=== PATIENT | female | born 1985 | race Caucasian/White ===

== ENCOUNTER 2024-01-24 10:37 | Inpatient (IN) | payer OTHER, SELFPAY ==
[2024-01-24] VITALS (11 sets, daily range): BP systolic 100–128; BP diastolic 55–93; BMI 25.2; BMI 26.9
--- NOTE | 2024-01-24 07:42 | ED.GENMED ---
History of Present Illness
General
Chief Complaint: Pneumonia Symptoms
Source: patient
Exam Limitations: none
Time Seen by Provider: 01/24/24 07:23
Nursing documentation reviewed up to this point in time: agreed with
Travel History
Have you had any contact with someone who has COVID-19?: No
Do you have any symptoms of coronavirus? Fever > 100 degrees, chills, cough, shortness of breath, sore throat, loss of taste or smell, muscle aches, or headache?: No
History of Present Illness
History of Present Illness:
38 y/o F with no pmh
has had fever and slight cough starting 01/18
has had temps up to 102, treated with ibuprofen (400 mg) or tylenol (650) every 3-5 hours or so
went to 2 days ago and DX with YESSI mild opacity/airspace disease c/w pna
put on augmentin, had 5 doses so far and still having temps
last tylenol at 445 am
having upper back pain, myalgias, headache, and fatigue, and rigors
Review of Systems
Review of Systems
Allergies reviewed?: Yes
All Other Systems: Not applicable
Phy Exam
Physical Exam
Physical Exam:
GENERAL: Alert , in no apparent distress
EYE: pupils equal and reactive
NECK: Supple
ENT: o/p clr, mmm.
CARDIAC: tachy, no murmur appreciated
LUNGS: b/l upper lobe rhonchi/rales worse on L than R
no tachypnea
speaking full sentences
ABDOMEN: Soft, without focal tenderness, no r/g, no cvat, normal bowel sounds
NEUROLOGICAL: Alert and oriented, no focal neuro deficits
SKIN: Warm and dry, skin intact.
MUSCULOSKELETAL: No edema, well perfused. neg michael's sign
PSYCH: Normal and appropriate interaction.
Course
Orders/Labs/Results
Orders:
Orders
05/24/24 07:32
CR Chest - 2 Views Urgent
Comment:
Reason For Exam: shortness of breath
01/24/24 07:34
CMP [Comprehensive Metabolic Panel] Urgent
Complete Blood Count/With Diff Urgent
01/24/24 07:42
0.9% Sodium Chloride 1000 ml [Nss] 1,000 ml IV BOLUS
Ibuprofen [Motrin] 600 mg PO NOW STA
01/24/24 08:25
Test Result ONCE
01/24/24 08:29
COVID-19 Antigen Urgent
Source: Nasal Swab
HCG, Urine Qualitative Screen Urgent
Date Specimen was Collected: 01/24/24
Time Specimen was Collected: 08:26
Urinalysis Reflex To Culture Urgent
Date Specimen was Collected: 01/24/24
Time Specimen was Collected: 08:26
Urine Microscopic Reflex Cult Urgent
Blood Culture Q30M
MARK Source: Blood/Venous
Specimen Description:
Blood Culture Q30M
MARK Source: Blood/Venous
Specimen Description:
Influenza A+B Rapid Molecular Urgent
MARK Source: Nasal Swab
Specimen Description:
01/24/24 08:51
Azithromycin 500 mg/250 ml [Zithromax Infusion] 500 mg in 250 ml IV NOW
CefTRIAXone [Rocephin] 1,000 mg IV NOW STA
Abnormal Lab Results
01/24/24 01/24/24
07:34 08:29
WBC 3.9 L 10^3/uL
(4.8-10.8)
Hct 34.9 L %
(37.0-47.0)
MPV 11.3 H fL
(7.4-10.4)
Absolute Lymphs (auto) 0.7 L 10^3/uL
(1.2-3.4)
Lymphocytes % 18.5 L %
(20.5-51.1)
Potassium 3.3 L mmol/L
(3.5-5.1)
Glucose 117 H mg/dl
(70-99)
AST 63 H U/L
(14-36)
ALT 95 H U/L
(0-35)
Urine Ketones 1+ A
(Negative)
Ur Occult Blood Reflex Trace A
(Negative)
Urine Bilirubin 1+ A
(Negative)
Urine Urobilinogen 2+ A
(Neg - 1+)
Leukocyte Esterase Rfl Trace A
(Negative)
Urine Bacteria (Reflex) Few A
(Negative)
01/24/24 07:34
01/24/24 07:34
Vital Signs
Initial and Last Documented VS:
Initial Vital Signs
Temp Pulse Resp BP Pulse Ox
101.1 F H 123 18 128/93 95
01/24/24 06:52 01/24/24 06:52 01/24/24 06:52 01/24/24 06:52 01/24/24 06:52
Last Documented Vital Signs
Temp Pulse Resp BP Pulse Ox
101.1 F H 123 18 128/93 96
01/24/24 06:52 01/24/24 06:52 01/24/24 06:52 01/24/24 06:52 01/24/24 07:50
MDM/Problems Addressed
Differential Diagnosis Includes:
pna, failure of outpatient therapy, influenza, covid, pe
MDM/Problems Addressed:
38 y/o F with no pmh
here with persistent fever despite 2 days of abx for PNA seen on CXR at 2 days ago
no resp distress, nontoxic appearing but rales b/l UL
cxr sizeable Lingular pna
leukopenia,mild transaminitis
d/w ed attending - whether pt should be added azithro and trial outpatient or admit
has had 5 doses of augmentin with worsening pna, rigors
meets SEPSIS criteria
will culture and admit
*Critical Care Note
Total Time (30-74mins, 75-104mins- exclusive of procedures): Not Applicable
ED Attending Note
-
Portions of this chart may have been created with voice recognition software.� Occasional wrong word or��sound alike� substitutions may have occurred due to the inherent limitations of voice recognition software.
Discharge Plan
Departure
Patient Disposition: Admit
Date of Disposition: 01/24/24
Time of Disposition: 08:50
Admit to: Med/Surg
Presentation/result/management discussed w/ accepting MD/DO: Hospitalist
Condition: Fair
Covid-19: Not Applicable
Discharge Problem:
Pneumonia, Failure of outpatient treatment
Prescriptions:
No Action
acetaminophen [Tylenol] 325 mg Tablet
650 mg PO Q4HPRN PRN (Reason: mild pain)
guaifenesin [Robitussin] 100 mg/5 mL Liquid
200 mg PO Q4HPRN PRN (Reason: cough)
amoxicillin-pot clavulanate [Augmentin] 875-125 mg Tablet
1 tab PO BID
ibuprofen 600 MG tablet
400 mg PO Q4HPRN PRN (Reason: cramps)
Referrals:
Charlie Funes DO [Family Provider] -
Interventions
Interventions:
*Risk Screen - Suicide Last Done: 01/24/24 07:50
*General Assessment Last Done: 01/24/24 06:52
*Neglect/Abuse Screening Last Done: 01/24/24 07:50
ED- Fall Risk Assessment Last Done: 01/24/24 07:50
*ED COVID-19 Vaccine History Last Done: 01/24/24 06:52
ED- Cardiac Assessment Last Done: 01/24/24 07:50
ED- Pulmonary Assessment Last Done: 01/24/24 07:50
Discharge Date and Time
Print Language: WOLOF
[2024-01-24 07:48] LABS: % Basophils 0.5 % (0-2); % Eosinophils 0.8 % (0-6); % Immature Granulocytes 0.5 % (0-0.5); % Lymphocytes 18.5 % (20.5-51.1); % Neutrophils 70.7 % (42.2-75.2); Absolute Lymphocytes 0.7 10^3/uL (1.2-3.4); Absolute Monocytes 0.4 10^3/uL (0.1-0.6); Absolute Neutrophils 2.8 10^3/uL (1.4-6.5); Hematocrit 34.9 % (37.0-47.0); Mean Corp Hgb Conc. 34.4 g/dL (33.0-37.0); Mean Corpuscular Hgb 28.3 pg (27.0-31.0); Mean Corpuscular Volume 82.3 fL (81.0-99.0); Mean Platelet Volume 11.3 fL (7.4-10.4); Nucleated Red Blood Cells % 0 %; Platelet Count 161 10^3/uL (130-400); Red Blood Cell Count 4.24 10^6/uL (4.20-5.40); Red Cell Dist. Width 12.5 % (11.5-14.5); White Blood Cell Count 3.9 10^3/uL (4.8-10.8)
[2024-01-24 08:02] LABS: ALT (SGPT) 95 U/L (0-35); AST (SGOT) 63 U/L (14-36); Albumin 3.8 g/dl (3.5-5.0); Alkaline Phosphatase 82 U/L (38-126); Blood Urea Nitrogen 9 mg/dl (7-17); Carbon Dioxide 23 mmol/L (22-30); Chloride 103 mmol/L (98-107); Estimated Creatinine Clearance 108 ml/min; Glucose 117 mg/dl (70-99); Potassium 3.3 mmol/L (3.5-5.1); Sodium 137 mmol/L (135-145); Total Bilirubin 0.6 mg/dl (0.2-1.3); Total Protein 6.6 g/dl (6.3-8.2); eGFR > 60.00
[2024-01-24] MEDS: MOTRIN 600 MG PO (08:02)
[2024-01-24] MEDS: NSS 1000 IV ×2 (08:18→16:00)
[2024-01-24 08:45] LABS: Urine Albumin Trace (Neg - Trace); Urine Bilirubin 1+ (Negative); Urine Character Clear (Clear); Urine Color Yellow; Urine Glucose Negative (Negative); Urine Ketone 1+ (Negative); Urine Leukocyte Trace (Negative); Urine Nitrite Negative (Negative); Urine Occult Blood Trace (Negative); Urine Specific Gravity 1.015 (<1.030); Urine Urobilinogen 2+ (Neg - 1+)
[2024-01-24 08:50] LABS: COVID-19 Antigen Negative (Negative)
[2024-01-24 08:53] LABS: HCG, Urine Qualitative Screen Negative
[2024-01-24 08:54] LABS: Urine Mucus Many; Urine Squamous Cell >30 /LPF (Few)
[2024-01-24 08:55] LABS: Urine Granular Cast 0-2 /LPF (0); Urine Red Blood Cell 0-2 /HPF (0-2)
[2024-01-24 08:56] LABS: Urine Bacteria Few (Negative)
[2024-01-24] MEDS: ROCEPHIN 1000 MG IV (09:41)
[2024-01-24] MEDS: ZITHROMAX INFUSION 250 IV (09:41)
--- NOTE | 2024-01-24 10:33 | HPS.HSE ---
Family Physician
-
Family Physician: Charlie Funes
Chief Complaint
-
Coughing, shortness of breath, myalgia
History of Present Illness
Patient is a pleasant 38 years old with no significant past medical history who came to the ER with coughing, shortness of breath, myalgia, fever which started on Saturday and progressively worse, was seen at urgent care and x-ray shows left upper
lobe mild opacity or airspace disease and started on Augmentin with no improvement.
In the ER patient found to have fever of 101.1, WBC 3.9 chest x-ray showed The heart size and pulmonary vasculature is normal. There is consolidation in the lingula. The right lung is clear. There is no pleural effusion or pneumothorax.
Patient seen and examined at bedside.
Shortness of breath improved.
at bedside, patient looks nontoxic appearance, no hypoxia, tachycardia improved.
Patient started on Rocephin and Zithromax and will be admitted under hospital service.
Medical History
Past Medical History
Past Medical History: Reports None
Past Surgical History: Reports None
Social History
Tobacco: Non-smoker
Alcohol: None
Drug: None
Personal:
Living: With Family
Family History
Family History: Cancer (Breast cancer)
Allergies / Home Medications
Allergies reflects when Allergies were last updated in [facility].
Home Medications with original date entered in [facility]
Allergy/Medication List:
Allergies
Allergy/AdvReac Type Severity Reaction Status Date / Time
No Known Allergies Allergy Verified 01/24/24 06:55
Home Medications
acetaminophen 325 mg tablet (Tylenol) 650 mg PO Q4HPRN PRN mild pain 01/24/24
amoxicillin 875 mg-potassium clavulanate 125 mg tablet 1 tab PO BID 01/24/24
guaifenesin 100 mg/5 mL oral liquid 200 mg PO Q4HPRN PRN cough 01/24/24
ibuprofen 600 mg tablet 400 mg PO Q4HPRN PRN cramps 01/24/24
Review of Systems
-
A 12 point ROS was completed and negative except as noted: Yes
Constitutional: Reports Fever, Fatigue and Chills; Denies Weight Gain, Weight Loss or Sleep Disturbance
EENT: Denies Tearing, Sore Throat, Mouth Pain, Mouth Swelling or Runny Nose
Respiratory: Reports Cough and Trouble Breathing; Denies Hemoptysis
Cardiac: Denies Chest Pain, Diaphoresis, Palpitations or Syncope
Abdomen/GI: Denies Abdominal Pain, Nausea, Vomiting, Diarrhea, Constipated, Bloody Stools or Black Stools
: Denies Dysuria, Frequency, Flank Pain, Incontinence, Difficulty Voiding, Urgency, Bleeding or Dark Urine
Musculoskeletal: Reports Muscle Pain; Denies Joint Pain, Joint Swelling, Muscle Stiffness or Edema
Skin: Denies Itching or Rash
Neurological: Denies Dizzy, Headache, Weakness or Numbness
Endocrine: Denies Polyuria, Polydipsia or Temp Intolerance
Hematologic/Lymphatic: Denies Bleeding, Swollen Glands or Bruising
Psych: Reports Calm; Denies Depression, Anxiety or Panic Disorder
Physical Exam
Vital Signs
Vital Signs
Temp Pulse Resp BP Pulse Ox
101.1 F H 99 17 109/69 95
01/24/24 06:52 01/24/24 09:30 01/24/24 09:30 01/24/24 09:00 01/24/24 09:30
Physical Exam
General: Well Developed, Well Nourished, No Apparent Distress, Comfortable and Good Appetite; No Pain, Chills or Sweats
HEENT: NormoCephalic, Moist mucous membranes, Atraumatic, Good Dentition, PERRLA, Nose Appears Normal and Ears Appear Normal
Respiratory: Rales and Rhonchi
Cardiac: S1/S2 and Regular Rhythm
Breast: Deferred by me
GI: Soft, Non Tender, Non Distended and Normal Bowel Sounds
Genito-urinary: Deferred by me
Musculoskeletal: No Clubbing, No Cyanosis and No Edema
Skin: Warm; No Rash, Jaundice, Ulcers, Lesions or Decubitus Ulcers
Neuro: Awake, Alert, Oriented, AO x 3, No Motor Deficits, Nonfocal/grossly intact and Cranial Nerves Intact
Hematologic/Lymphatic: No Lymphadenopathy
Psych: Calm
Laboratory Results
-
01/24/24 07:34
01/24/24 07:34
Laboratory Results
Total Bilirubin 0.6 mg/dl (0.2-1.3) 01/24/24 07:34
AST 63 U/L (14-36) H 01/24/24 07:34
ALT 95 U/L (0-35) H 01/24/24 07:34
Alkaline Phosphatase 82 U/L (38-126) 01/24/24 07:34
Data Reviewed
-
Diagnostic Radiology: Report Reviewed by me
CT Scan: Report Reviewed by me
Medical Tests (Nuc Med, Echo, EKG etc): Report Reviewed by me
Lab Data: Labs Reviewed by me
Old Records: Reviewed
Impression/Plan
-
IMPRESSION:
Patient is a pleasant 2 years old with no past medical history who came to the ER with coughing, shortness of breath, fever, myalgia found to have pneumonia, failed outpatient oral Augmentin.
PLAN:
Sepsis secondary to pneumonia
Patient meets sepsis criteria on admission
Heart rate max 108
WBCs 3.9
Respiratory rate 17
Temperature 101.1
Source of infection is pneumonia.
Chest x-ray showed:
The heart size and pulmonary vasculature is normal. There is consolidation in the lingula. The right lung is clear. There is no pleural effusion or pneumothorax
Start IV fluid
Start IV antibiotic in form of Rocephin and azithromycin
Blood culture pending
Sputum culture pending
CODE STATUS: Full code
DVT prophylaxis: Low risk
Diet: Regular diet
--- NOTE | 2024-01-24 14:14 | EDRN ---
this RN called the receiving unit and notified them that paper report was going to be tubed up
[2024-01-24] MEDS: TYLENOL 650 MG PO ×2 (15:58→22:11)
--- NOTE | 2024-01-24 16:00 | CM ---
Reviewed the chart notes and spoke with the patient at the bedside. The patient resides with her spouse and children in a two story home with two steps to enter. The patient reports no DME or SNF. She did have VN after having her twins. The
patient confirmed her pharmacy of choice is the [address] CM continues to be available to patient/family and is monitoring medical plan for needs at discharge.
Plan: Discharge to home when medically stable. No anticipated needs.
[2024-01-24] MEDS: DUONEB 3 ML INH (16:29)
--- NOTE | 2024-01-24 16:34 | PTCARENOTE ---
Pt. admitted to . Oriented to floor. NSR on tele monitor. Pt. with 102.9 fever. Tylenol given per order.
[2024-01-24] MEDS: ROBITUSSIN 200 MG PO ×2 (18:11→22:12)
[2024-01-24] MEDS: MOTRIN 400 MG PO (18:12)
[2024-01-25 03:17] VITALS: BP 109/67
[2024-01-25] MEDS: MOTRIN 400 MG PO (05:33)
[2024-01-25 06:50] LABS: Hematocrit 30.7 % (37.0-47.0); Hemoglobin 10.5 g/dL (12.0-16.0); Mean Corp Hgb Conc. 34.2 g/dL (33.0-37.0); Mean Corpuscular Hgb 28.5 pg (27.0-31.0); Mean Corpuscular Volume 83.2 fL (81.0-99.0); Mean Platelet Volume 10.6 fL (7.4-10.4); Platelet Count 162 10^3/uL (130-400); Red Blood Cell Count 3.69 10^6/uL (4.20-5.40); Red Cell Dist. Width 12.6 % (11.5-14.5); White Blood Cell Count 3.3 10^3/uL (4.8-10.8)
[2024-01-25 06:57] LABS: Blood Urea Nitrogen 8 mg/dl (7-17); Calcium 8.4 mg/dl (8.4-10.2); Carbon Dioxide 23 mmol/L (22-30); Chloride 107 mmol/L (98-107); Estimated Creatinine Clearance > 125 ml/min; Glucose 97 mg/dl (70-99); Potassium 3.5 mmol/L (3.5-5.1); Sodium 138 mmol/L (135-145); eGFR > 60.00
[2024-01-25 07:25] VITALS: BP 133/82
--- NOTE | 2024-01-25 09:52 | W.PN.HOSP.TC ---
Today's Communication/Plan
-
Discharge home today
Assessment / Plan
Assessment / Plan
Sepsis secondary to pneumonia
Patient meets sepsis criteria on admission
Heart rate max 108
WBCs 3.9
Respiratory rate 17
Temperature 101.1
Source of infection is pneumonia.
Chest x-ray showed:
The heart size and pulmonary vasculature is normal. There is consolidation in the lingula. The right lung is clear. There is no pleural effusion or pneumothorax
Start IV fluid
Start IV antibiotic in form of Rocephin and azithromycin
Blood culture pending
Sputum culture pending
01/24
Patient feeling better.
Discharge home today on oral antibiotic
CODE STATUS: Full code
DVT prophylaxis: Low risk
Diet: Regular diet
Anticipated Discharge: Today
Subjective/Interval History
-
Date of Service: January 25, 2024
Patient seen and examined at bedside, denies any chest pain or shortness of breath, improved coughing, no abdominal pain, no nausea, no vomiting, no diarrhea or constipation.
Objective Data
-
Labs:
Laboratory Results
01/25/24
06:15
WBC 3.3 L
Hgb 10.5 L
Hct 30.7 L
Plt Count 162
Sodium 138
Potassium 3.5
Chloride 107
Carbon Dioxide 23
BUN 8
Creatinine 0.5 L
Glucose 97
Calcium 8.4
Vital Signs:
Vital Signs
Temp Pulse Resp BP Pulse Ox
99.1 F 95 18 133/82 95
01/25/24 07:25 01/25/24 07:25 01/25/24 07:25 01/25/24 07:25 01/25/24 07:25
I&O
01/24/24 01/25/24 01/26/24
06:59 06:59 06:59
Intake Total 1959
Balance 1959
Physical Exam
-
General: Well Developed and No Apparent Distress
HEENT: Normocephalic, Atraumatic and Moist Mucous Membranes
Respiratory: Rales
Cardiac: Regular Rhythm and S1/S2; Negative Murmur, Rub or Gallop
GI: Soft, Nontender, Nondistended and Normal Bowel Sounds; Negative Organomegaly
Rectal: Deferred by Provider
Musculoskeletal: No Clubbing, No Cyanosis and No Edema
Skin: Negative Rash
Neuro: Nonfocal/Grossly Intact
--- NOTE | 2024-01-25 10:00 | W.DCSUMMARY ---
Discharge Summary
Discharge Data
Date of Admission: 01/24/24
Date of Discharge: 01/25/24
-
Pending Results: No
Hospital Course
Patient is a pleasant 38 years old with no past medical history who admitted with sepsis secondary to pneumonia
Patient meets sepsis criteria on admission
Heart rate max 108
WBCs 3.9
Respiratory rate 17
Temperature 101.1
Source of infection is pneumonia.
Chest x-ray showed:
The heart size and pulmonary vasculature is normal. There is consolidation in the lingula. The right lung is clear. There is no pleural effusion or pneumothorax
Start IV fluid
Start IV antibiotic in form of Rocephin and azithromycin
Blood culture pending
Sputum culture pending
01/24
Patient feeling better.
Discharge home today on oral antibiotic
CODE STATUS: Full code
DVT prophylaxis: Low risk
Diet: Regular diet
Anticipated Discharge: Today
Discharge Plan
-
Patient Disposition: Home (Routine Discharge)
Discharge Diagnosis/Procedures: Sepsis secondary to pneumonia
Diet: No restrictions
Activity: No restrictions
Driving Restrictions: As prior to admission
Referrals:
Charlie Funes DO [Family Provider] -
Prescriptions:
New
cefuroxime axetil 500 mg tablet
500 mg PO BID Qty: 10 0RF
azithromycin [Zithromax] 500 mg tablet
500 mg PO DAILY 5 Days Qty: 5 0RF
Continued
acetaminophen [Tylenol] 325 mg Tablet
650 mg PO Q4HPRN PRN (Reason: mild pain)
guaifenesin 100 mg/5 mL Liquid
200 mg PO Q4HPRN PRN (Reason: cough)
ibuprofen 600 MG tablet
400 mg PO Q4HPRN PRN (Reason: cramps)
Discontinued
amoxicillin-pot clavulanate [Augmentin] 875-125 mg Tablet
1 tab PO BID
Discharge Orders:
Discharge Patient (As Directed); Ordered 01/25/24
Ordered By: Amanda Chester
Discharge Date and Time
Print Language: NIGERIEN
[2024-01-25] MEDS: ZITHROMAX INFUSION 250 IV (10:52)
[2024-01-25 11:10] VITALS: BP 124/87
[2024-01-25] MEDS: STERILE WATER FOR INJECTION 10 ML IV (12:23)
[2024-01-25] MEDS: ROCEPHIN 1000 MG IV (12:23)
--- NOTE | 2024-01-25 15:15 | CM ---
patient with sepsis due to pna o adm.she is stable for dc home with no needs on ora abx.
== END 2024-01-25 12:46 | disposition home or self-care (01) | DRG 871 ==
LOC: 2 NORTH 10:37
PROVIDERS: Physician Assistant; ADMITTING PHYSICIAN General Practice; EMERGENCY PHYSICIAN Emergency Medicine; FAMILY PHYSICIAN Family Medicine
DX: A41.89 Other specified sepsis (principal); J18.9 Pneumonia, unspecified organism; Z11.52 Encounter for screening for COVID-19
CPT/HCPCS: 71046; 80048; 80053; 81003; 81015; 81025; 85025; 85027; 87040; 87502; 87811; 94640; 96361; 96365; 96375; 99285